=== PATIENT | female | born 1960 | race Caucasian/White ===

== ENCOUNTER 2017-12-03 16:03 | Emergency (ER) | payer MEDICAID ==
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
[2017-12-03] MEDS ORDERED: Lactated Ringers 1,000 ML IV ONE (17:45)
[2017-12-03] MEDS ORDERED: cefTRIAXone 1 GM in Sodium Chloride 0.9% 50 ML IV ONE (17:50)
[2017-12-03 18:44] VITALS: BP 122/69
--- NOTE | 2017-12-04 09:17 | CR ---
Chest 2V FINDINGS: There is hyperinflation. The heart and vascular structures are normal in appearance. No inf iltrates or effusions are demonstrated. The skeletal structures are unremarkable. IMPRESSION: 1. Hyperinflation consistent with COPD. 2. No acute infiltrates.
== END 2017-12-03 19:22 | disposition home or self-care (01) ==
LOC: JP.ED 16:03
DX: D72.829 Elevated white blood cell count, unspecified (principal); Q89.01 Asplenia (congenital); R05 Cough; R63.4 Abnormal weight loss; F17.210 Nicotine dependence, cigarettes, uncomplicated; Z79.82 Long term (current) use of aspirin
CPT/HCPCS: 36415; 71046; 80053; 81001; 85027; 85651; 87040; 96365; 99284; J0696; J7050; J7120

== ENCOUNTER 2018-05-26 17:21 | Emergency (ER) | payer MEDICAID ==
[2018-05-26 17:30] VITALS: BP 159/69
--- NOTE | 2018-05-26 17:54 | EDM.PDOC ---
ED HPI GENERAL MEDICAL PROBLEM - General Chief Complaint: Abdominal Pain Stated Complaint: ABD PAIN Time Seen by Provider: 05/26/18 17:43 Source of Information: Reports: Patient History Limitations: Reports: No Limitations - History of Present Illness INITIAL COMMENTS - FREE TEXT/NARRATIVE: 57 yo presents to ER with left sided flank and ABD pain. pain has been present for 3 months. mild today but was worse this AM. Denies nausea or vomiting. last BM was yesterday was loose. denies dysuria. 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: Psychiatric History: Reports: Anxiety, Depression Hematologic History: Reports: Blood Transfusion(s) - Infectious Disease History Infectious Disease History: Reports: Chicken Pox - Past Surgical History GI Surgical History: Reports: Other (See Below) Other GI Surgeries/Procedures: spleenectomy Social & Family History - Tobacco Use Smoking Status *Q: Current Every Day Smoker Years of Tobacco use: 40 Packs/Tins Daily: 0.5 - Caffeine Use Caffeine Use: Reports: Coffee - Recreational Drug Use Recreational Drug Use: No ED ROS GENERAL - Review of Systems Review Of Systems: See Below Constitutional: Denies: Fever, Chills Respiratory: Denies: Shortness of Breath, Wheezing Cardiovascular: Denies: Chest Pain GI/Abdominal: Reports: Abdominal Pain. Denies: Constipation, Diarrhea, Nausea, Vomiting ED EXAM, GI/ABD - Physical Exam Exam: See Below Exam Limited By: No Limitations General Appearance: Alert, WD/WN, No Apparent Distress Head: Atraumatic, Normocephalic Neck: Normal Inspection, Supple, Non-Tender, Full Range of Motion Respiratory/Chest: No Respiratory Distress, Lungs Clear, Normal Breath Sounds, No Accessory Muscle Use, Chest Non-Tender Cardiovascular: Normal Peripheral Pulses, Regular Rate, Rhythm, No Edema, No Murmur, No Rub GI/Abdominal Exam: Normal Bowel Sounds, Soft, No Organomegaly, No Distention, No Abnormal Bruit, No Mass, Tender (mild general left sided ) Back Exam: CVA Tenderness (L) (mild). No: CVA Tenderness (R) Neurological: Alert, Oriented Course - Vital Signs Last Recorded V/S: Last Vital Signs Temp 36.2 C 05/26/18 17:36 Pulse 111 H 05/26/18 17:36 Resp 16 05/26/18 17:36 BP 159/69 H 05/26/18 17:36 Pulse Ox 95 05/26/18 17:36 - Orders/Labs/Meds Orders: Active Orders 24 hr Category Date Time Status UA W/MICROSCOPIC [URIN] Stat Lab 05/26/18 18:09 Ordered Labs: Laboratory Tests 05/26/18 05/26/18 Range/Units 17:49 18:09 WBC 17.6 H (4.5-11.0) K/uL RBC 4.10 (3.30-5.50) M/uL Hgb 12.4 (12.0-15.0) g/dL Hct 36.9 (36.0-48.0) % MCV 90 (80-98) fL MCH 30 (27-31) pg MCHC 34 (32-36) % Plt Count 413 H (150-400) K/uL Neut % (Auto) 64 (36-66) % Lymph % (Auto) 27 (24-44) % [place] % (Auto) 9 H (2-6) % Eos % (Auto) 1 L (2-4) % Baso % (Auto) 0 (0-1) % Urine Color Yellow Urine Appearance Clear Urine pH 5.0 (4.5-8.0) Ur Specific [place] 1.030 (1.008-1.030) Urine Protein Negative (NEGATIVE) mg/dL Urine Glucose (UA) Normal (NEGATIVE) mg/dL Urine Ketones Negative (NEGATIVE) mg/dL Urine Occult Blood Moderate (NEGATIVE) Urine Nitrite Negative (NEGATIVE) Urine Bilirubin Small (NEGATIVE) Urine Urobilinogen 1 (NORMAL) mg/dL Ur Leukocyte Esterase Negative (NEGATIVE) Urine RBC 5-10 H (0-5) Urine WBC 5-10 H (0-5) Ur Epithelial Cells Few Amorphous Sediment Few Urine Bacteria Few Urine Mucus Few - Re-Assessments/Exams Free Text/Narrative Re-Assessment/Exam: 05/26/18 18:34 pain very mild. WBC mildly elevated without shift. UA WBC and RBC with bacteria will tx for UTI BActrim DS twice daily for 3 days. Pt has appt with PCP next week Departure - Departure Time of Disposition: 18:35 Disposition: Home, Self-Care 01 Condition: Good Clinical Impression: UTI (urinary tract infection) Qualifiers: Urinary tract infection type: acute cystitis Hematuria presence: with hematuria Qualified Code(s): N30.01 - Acute cystitis with hematuria - Discharge Information *PRESCRIPTION DRUG MONITORING PROGRAM REVIEWED*: Not Applicable *COPY OF PRESCRIPTION DRUG MONITORING REPORT IN PATIENT RENEE: Not Applicable Instructions: Urinary Tract Infection, Adult Referrals: PCP,None [Primary Care Provider] - Forms: ED Department Discharge Additional Instructions: BActrim DS twice daily for 3 days follow-up with primary care provider - My Orders Last 24 Hours: My Active Orders 05/26/18 18:09 UA W/MICROSCOPIC [URIN] Stat - Assessment/Plan Last 24 Hours: My Active Orders 05/26/18 18:09 UA W/MICROSCOPIC [URIN] Stat
== END 2018-05-26 18:45 | disposition home or self-care (01) ==
LOC: JP.ED 17:21
DX: N30.01 Acute cystitis with hematuria (principal); F17.210 Nicotine dependence, cigarettes, uncomplicated; Z79.82 Long term (current) use of aspirin
CPT/HCPCS: 36415; 81001; 85025; 99284